=== PATIENT | male | born 1975 | race Caucasian/White ===

== ENCOUNTER 2018-05-16 15:47 | Emergency (ER) | payer SELFPAY ==
[2018-05-16] MEDS ORDERED: diphenhydrAMINE 50 MG/ML VIAL IVP PRN ×2 (16:21)
[2018-05-16 16:25] LABS: #Eosinphils 0.3 thou/uL (0.0-0.7); #Lymphocytes 1.7 thou/uL (1.20-3.40); #Monocytes 0.5 thou/uL (0.11-0.59); #Neutrophils 4.2 thou/uL (1.40-6.50); %Basophils 0.3 % (0.0-1.0); %Eosinophils 4.2 % (0.0-10.0); %Lymphocytes 25.3 % (21.0-51.0); %Monocytes 7.2 % (0.0-10.0); Hemoglobin 15.6 g/dL (14.0-18.0); Mean Corpuscular HGB CONC 32.8 g/dL (32.0-36.0); Mean Corpuscular Hemoglobin 25.9 pg (27.0-31.0); Mean Corpuscular Volume 78.7 fL (78.0-98.0); Mean Platelet Volume 7.8 fL (7.4-10.4); Platelet Count 248 thou/uL (130-400); RBC Distribution Width 13.7 % (11.5-14.5); Red Blood Cell (RBC) Count 6.04 mill/uL (4.70-6.10); White Blood Cell (WBC) Count 6.7 thou/uL (4.8-10.8)
[2018-05-16] MEDS ORDERED: WATER IVPB ONE ×3 (16:30→18:15)
[2018-05-16] MEDS ORDERED: WATER IVPB SCH (16:30)
[2018-05-16] MEDS ORDERED: ACETYLCYSTEINE IVPB SCH (16:30)
[2018-05-16] MEDS ORDERED: DEXTROSE 5% IVPB ONE ×3 (16:30→18:15)
[2018-05-16] MEDS ORDERED: DEXTROSE 5% IVPB SCH (16:30)
[2018-05-16] MEDS ORDERED: ACETYLCYSTEINE IVPB ONE ×3 (16:30→18:15)
[2018-05-16 16:39] LABS: Bilirubin Negative (Negative); Blood, Urine Large (Negative); Clarity CLOUDY (Clear); Glucose, Urine (Dipstick) 500 mg/dL (Negative); Leukocyte Negative (Negative); Nitrite Negative (Negative); Protein, Urine (Dipstick) Trace mg/dL (Neg-Trace); Specific Gravity, Urine 1.027 (1.002-1.036); Urobilinogen 0.2 mg/dL (0.2-1.0)
[2018-05-16 16:41] LABS: Bacteria/HPF None Seen HPF (None Seen); Hyaline Casts/LPF 4-6 HYALINE CAST LPF (0-3 Hyaline); Pathc Cast-AUWi Flag 1.01 (0-2.49); RBC/HPF GREATER THAN 50-TNTC HPF (0-3); Squamous Epithelial 0-3 HPF (0-3)
[2018-05-16 16:48] LABS: Alcohol Less than 10 mg/dL (Less than 10); Salicylate Less than 8.0 mg/dL (15.0-30.0)
[2018-05-16 16:49] LABS: Amphetamine Not Detected (NotDetected); Barbiturates Screen Not Detected (NotDetected); Benzodiazepine Screen Not Detected (NotDetected); Cocaine Metabolite Screen Not Detected (NotDetected); Medtox Control Line Valid? VALID (VALID); Medtox Reader # READER 4; Methadone Not Detected (NotDetected); Methamphetamine Not Detected (NotDetected); Opiate Screen Detected (NotDetected); Oxycodone Screen Not Detected (NotDetected); Phencyclidine (PCP) Not Detected (NotDetected); THC/Cannabinoid Screen Not Detected (NotDetected); Tricyclic Screen Not Detected (NotDetected)
[2018-05-16 16:50] LABS: ALT (SGPT) 27 U/L (8-55); AST (SGOT) 17 U/L (5-34); Albumin 4.2 g/dL (3.5-5.0); Alkaline Phosphatase 94 U/L (40-150); Anion Gap 12 mmol/L (10-20); BUN (Urea Nitrogen) 8 mg/dL (8.9-20.6); Bilirubin, Total 0.4 mg/dL (0.2-1.2); CK (CPK) 79 U/L (30-200); Calc. Creatinine Clearance 0 mL/min (70-130); Calcium 9.5 mg/dL (7.8-10.44); Carbon Dioxide 26 mmol/L (22-29); Chloride 105 mmol/L (98-107); Estimated GFR-MDRD 85; Globulin 2.7 g/dL (2.4-3.5); Glucose 262 mg/dL (70-105); Potassium 3.9 mmol/L (3.5-5.1); Protein, Total 6.9 g/dL (6.0-8.3); Sodium 139 mmol/L (136-145)
[2018-05-16 20:09] LABS: Alcohol Less than 10 mg/dL (Less than 10); Salicylate Less than 8.0 mg/dL (15.0-30.0)
[2018-05-16 20:18] LABS: Lactic Acid 2.6 mmol/L (0.5-2.2)
[2018-05-16] MEDS ORDERED: Ondansetron PF 4 MG/2 ML Vial ONE (20:35)
[2018-05-16] MEDS ORDERED: Ibuprofen 800 MG TAB ONE (22:40)
[2018-05-16] MEDS ORDERED: Ziprasidone 20 MG CAP ONE (23:13)
[2018-05-17] MEDS ORDERED: Ketorolac Tromethamine 60 MG/2 ML VIAL ONE (17:41)
[2018-05-17] MEDS ORDERED: traZODone HCl 50 MG TAB ONE (19:19)
[2018-05-17] MEDS ORDERED: Ibuprofen 200 MG TAB ONE (23:30)
[2018-05-18] MEDS ORDERED: Benzocaine (Dental) 20% 10 gm Tube TOP SCH (00:45)
[2018-05-19] MEDS ORDERED: Polyethylene Glycol 3350 17 GM Packet PO SCH (13:30)
[2018-05-19] MEDS ORDERED: Benzocaine (Dental) 20% 10 gm Tube TOP SCH (13:30)
[2018-05-19 21:26] LABS: #Eosinphils 0.2 thou/uL (0.0-0.7); #Lymphocytes 2.2 thou/uL (1.20-3.40); #Monocytes 0.5 thou/uL (0.11-0.59); #Neutrophils 4.1 thou/uL (1.40-6.50); %Basophils 0.1 % (0.0-1.0); %Lymphocytes 31.7 % (21.0-51.0); %Monocytes 6.9 % (0.0-10.0); %Neutrophils 58.3 % (42.0-75.0); Hemoglobin 15.3 g/dL (14.0-18.0); Mean Corpuscular HGB CONC 33.7 g/dL (32.0-36.0); Mean Corpuscular Hemoglobin 26.3 pg (27.0-31.0); Mean Platelet Volume 7.7 fL (7.4-10.4); Platelet Count 230 thou/uL (130-400); RBC Distribution Width 13.6 % (11.5-14.5)
[2018-05-19 21:49] LABS: ALT (SGPT) 24 U/L (8-55); AST (SGOT) 16 U/L (5-34); Albumin 4.4 g/dL (3.5-5.0); Alkaline Phosphatase 96 U/L (40-150); Anion Gap 14 mmol/L (10-20); BUN (Urea Nitrogen) 12 mg/dL (8.9-20.6); Bilirubin, Total 0.4 mg/dL (0.2-1.2); Calc. Creatinine Clearance 0 mL/min (70-130); Calcium 9.9 mg/dL (7.8-10.44); Carbon Dioxide 29 mmol/L (22-29); Chloride 103 mmol/L (98-107); Estimated GFR-MDRD 87; Globulin 2.9 g/dL (2.4-3.5); Glucose 277 mg/dL (70-105); Potassium 4.1 mmol/L (3.5-5.1); Protein, Total 7.3 g/dL (6.0-8.3); Sodium 142 mmol/L (136-145)
--- NOTE | 2018-05-20 13:27 | EKG ---
Test Reason : ER INDICATION Blood Pressure : / mmHG Vent. Rate : 074 BPM Atrial Rate : 074 BPM P-R Int : 146 ms QRS Dur : 082 ms QT Int : 362 ms P-R-T Axes : 047 018 039 degrees QTc Int : 401 ms Normal sinus rhythm Normal ECG Confirmed by RISA GODINEZ ([id number]), content editor JUANA GTZ ([id number]) on 05/20/2018 1:27:22 PM Referred By: KEVYN Confirmed By:RISA GODINEZ
== END 2018-05-20 00:52 ==
LOC: ERS 15:47
DX: T39.1X2A Poisoning by 4-Aminophenol derivatives, intentional self-harm, initial encounter (principal); T40.2X2A Poisoning by other opioids, intentional self-harm, initial encounter; E11.40 Type 2 diabetes mellitus with diabetic neuropathy, unspecified; K21.9 Gastro-esophageal reflux disease without esophagitis; I10 Essential (primary) hypertension; E11.43 Type 2 diabetes mellitus with diabetic autonomic (poly)neuropathy; K31.84 Gastroparesis; F31.9 Bipolar disorder, unspecified; F41.9 Anxiety disorder, unspecified; F42.9 Obsessive-compulsive disorder, unspecified; F63.81 Intermittent explosive disorder
CPT/HCPCS: 36415; 80053; 80306; 80307; 81003; 81015; 82550; 83605; 84443; 85025; 93005; 96361; 96365; 96366; 96372; J0132; J1885; J2405; J7070

== ENCOUNTER 2018-06-03 18:20 | Emergency (ER) | payer SELFPAY ==
[2018-06-03 18:58] LABS: #Eosinphils 0.2 thou/uL (0.0-0.7); #Lymphocytes 2.5 thou/uL (1.20-3.40); #Monocytes 0.7 thou/uL (0.11-0.59); #Neutrophils 5.4 thou/uL (1.40-6.50); %Basophils 0.4 % (0.0-1.0); %Eosinophils 1.9 % (0.0-10.0); %Lymphocytes 28.4 % (21.0-51.0); %Neutrophils 61.3 % (42.0-75.0); Hemoglobin 14.4 g/dL (14.0-18.0); Mean Corpuscular HGB CONC 32.5 g/dL (32.0-36.0); Mean Corpuscular Hemoglobin 25.2 pg (27.0-31.0); Mean Corpuscular Volume 77.5 fL (78.0-98.0); Mean Platelet Volume 7.5 fL (7.4-10.4); Platelet Count 236 thou/uL (130-400); RBC Distribution Width 13.6 % (11.5-14.5); Red Blood Cell (RBC) Count 5.72 mill/uL (4.70-6.10); White Blood Cell (WBC) Count 8.8 thou/uL (4.8-10.8)
[2018-06-03 19:06] LABS: Bilirubin Negative (Negative); Blood, Urine Small (Negative); Clarity CLEAR (Clear); Glucose, Urine (Dipstick) 500 mg/dL (Negative); Leukocyte Negative (Negative); Nitrite Negative (Negative); Protein, Urine (Dipstick) Trace mg/dL (Neg-Trace); Specific Gravity, Urine 1.029 (1.002-1.036)
[2018-06-03 19:09] LABS: Bacteria/HPF None Seen HPF (None Seen); Hyaline Casts/LPF 0-3 HYALINE CAST LPF (0-3 Hyaline); Squamous Epithelial 0-3 HPF (0-3); WBC/HPF 0-3 HPF (0-3)
[2018-06-03] MEDS ORDERED: Morphine 4 MG/ML VIAL ONE ×2 (19:15→22:25)
[2018-06-03] MEDS ORDERED: Ondansetron PF 4 MG/2 ML Vial ONE ×2 (19:15→23:45)
[2018-06-03 19:30] LABS: ALT (SGPT) 29 U/L (8-55); AST (SGOT) 21 U/L (5-34); Albumin 4.5 g/dL (3.5-5.0); Alkaline Phosphatase 93 U/L (40-150); Anion Gap 11 mmol/L (10-20); BUN (Urea Nitrogen) 11 mg/dL (8.9-20.6); Bilirubin, Total 0.6 mg/dL (0.2-1.2); Calc. Creatinine Clearance 0 mL/min (70-130); Calcium 9.7 mg/dL (7.8-10.44); Carbon Dioxide 28 mmol/L (22-29); Chloride 106 mmol/L (98-107); Estimated GFR-MDRD 70; Globulin 2.9 g/dL (2.4-3.5); Glucose 213 mg/dL (70-105); Potassium 3.6 mmol/L (3.5-5.1); Protein, Total 7.4 g/dL (6.0-8.3); Sodium 141 mmol/L (136-145)
--- NOTE | 2018-06-03 19:40 | CT ---
ABDOMEN AND PELVIC CT SCAN WITHOUT IV CONTRAST: 06/03/18 HISTORY: 42-year-old male with history of restless leg syndrome, neuropathy, Dupont's neuroma, kidney stones. Some mild linear parenchymal changes in the lingula. The lung bases are otherwise clear. Status post cholecystectomy. The liver, pancreas, spleen, adrenal glands are unremarkable. There are bilateral re nal calculi. There is no evidence for dilatation of the upper collecting system or ureters. There do es however, appear to be an approximately 0.5 cm diameter nonobstructing calculus in the distal right ureter, 4 to 5 cm from the ureterovesicular junction. Normal appearing appendix. No abscess or abnor mal fluid collection. Spinal canal stenosis at L4-5 and L5-S1 levels. IMPRESSION: Bilateral nonobstructing renal calculi. Nonobstructing right ureteral calculus 4 to 5 m from the uret erovesicular junction. Normal appearing appendix. Spinal canal stenotic changes at L 4-5 and L5-S1. POS: [facility]
[2018-06-03 20:04] LABS: Acetaminophen Less than 6.0 mcg/mL (10.0-30.0); Alcohol Less than 10 mg/dL (Less than 10); CK (CPK) 65 U/L (30-200); Salicylate Less than 8.0 mg/dL (15.0-30.0)
[2018-06-03] MEDS ORDERED: Ketorolac Tromethamine 30 MG/ML VIAL ONE (20:07)
[2018-06-03 20:17] LABS: Amphetamine Not Detected (NotDetected); Barbiturates Screen Not Detected (NotDetected); Benzodiazepine Screen Not Detected (NotDetected); Cocaine Metabolite Screen Not Detected (NotDetected); Medtox Control Line Valid? VALID (VALID); Medtox Reader # READER 1; Methadone Not Detected (NotDetected); Methamphetamine Not Detected (NotDetected); Opiate Screen Not Detected (NotDetected); Oxycodone Screen Not Detected (NotDetected); Phencyclidine (PCP) Not Detected (NotDetected); THC/Cannabinoid Screen Not Detected (NotDetected); Tricyclic Screen Not Detected (NotDetected)
--- NOTE | 2018-06-03 21:12 | ULT ---
BILATERAL SCROTAL ULTRASOUND INCLUDING COLOR AND SPECTRAL DOPPLER IMAGIN06/03/18 HISTORY: 42-year-old male with history of scrotal and testicular pain and flank pain. Right testis measures 4.8 x 3.2 x 2.9 cm. Left testis measures 5.0 x 2.3 x 3.1 cm. Small bilateral ep ididymal cyst, 0.7 x 0.9 cm on the right side and 0.4 x 0.6 cm on the left. There are borderline size d scrotal veins on the left side, evidence for borderline varicocele. No intratesticular mass. No sig nificant hydrocele. Vascular duplex demonstrates arterial inflow and venous outflow. No evidence for testicular torsion. IMPRESSION: No intratesticular mass or testicular torsion or hydrocele. Possible borderline varicocele on the lef t side. Small epididymal cyst. POS: [facility]
[2018-06-03] MEDS ORDERED: traZODone HCl 150 MG TAB PO SCH (22:45)
[2018-06-03] MEDS ORDERED: Lithium Carbonate 150 MG CAP PO SCH (23:00)
[2018-06-03] MEDS ORDERED: lamoTRIgine 100 MG TAB PO SCH (23:00)
[2018-06-03] MEDS ORDERED: Gabapentin 400 MG CAP PO SCH (23:00)
[2018-06-03] MEDS ORDERED: OXcarbazepine 300 MG TAB PO SCH (23:00)
[2018-06-03] MEDS ORDERED: Atorvastatin Calcium 10 MG TAB PO SCH (23:00)
[2018-06-03] MEDS ORDERED: glipiZIDE 10 MG TAB PO SCH (23:00)
[2018-06-03] MEDS ORDERED: rOPINIRole HCl 1 MG TAB PO SCH (23:00)
[2018-06-04] MEDS ORDERED: OXcarbazepine 300 MG TAB PO SCH (06:00)
[2018-06-04] MEDS ORDERED: lamoTRIgine 100 MG TAB PO SCH (06:00)
[2018-06-04] MEDS ORDERED: glipiZIDE 10 MG TAB PO SCH (06:00)
[2018-06-04] MEDS ORDERED: Famotidine 20 MG TAB PO SCH (06:00)
[2018-06-04] MEDS ORDERED: Lithium Carbonate 150 MG CAP PO SCH (06:00)
[2018-06-04] MEDS ORDERED: Gabapentin 400 MG CAP PO SCH (06:00)
[2018-06-04] MEDS ORDERED: Ketorolac Tromethamine 30 MG/ML VIAL ONE (06:03)
== END 2018-06-04 06:11 | disposition home or self-care (01) ==
LOC: ERS 18:20
DX: N20.2 Calculus of kidney with calculus of ureter (principal); F43.9 Reaction to severe stress, unspecified; F42.9 Obsessive-compulsive disorder, unspecified; E11.9 Type 2 diabetes mellitus without complications; I10 Essential (primary) hypertension; F41.9 Anxiety disorder, unspecified; F31.9 Bipolar disorder, unspecified
CPT/HCPCS: 74176; 76870; 80053; 80306; 80307; 81003; 81015; 82550; 85025; 87086; 93005; 93976; 96361; 96372; 96374; 96375; 96376; J1885; J2270; J2405